=== PATIENT | male | born 1975 ===

== ENCOUNTER 2018-10-20 12:52 | Emergency (ER) | payer OTHER ==
[2018-10-20 13:05] VITALS: RESP 18; O2SAT 97
--- NOTE | 2018-10-20 13:30 | C.PDOC ---
History Of Present Illness 42-year-old male presents with complaints of trauma to his face. 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 He states that the bottom drillbit dislodged and hit him in the face (medially to left eye and bridge of nose;below eyebrow). He denies proper eyewear. Patient denies loss of consciousness or any other injuries. Patient states that his vision is well, denies weakness, dizziness, nausea and vomiting. Chief Complaint (Nursing): Abnormal Skin Integrity History Per: Patient History/Exam Limitations: no limitations Onset/Duration Of Symptoms: Hrs Current Symptoms Are (Timing): Still Present Location Of Injury: Left: Face (nose, eye) Quality Of Symptoms: Other (laceration, active bleeding) Past Medical History Reviewed: Historical Data, Nursing Documentation, Vital Signs Vital Signs: Last Vital Signs Temp 97.4 F L 10/20/18 12:59 Pulse 78 10/20/18 12:59 Resp 18 10/20/18 12:59 BP 125/75 10/20/18 12:59 Pulse Ox 97 10/20/18 12:59 Primary Care Provider: FAMILY PROVIDER,NO - Medical History PMH: No Chronic Diseases Surgical History: No Surg Hx Family History: States: No Known Family Hx - Social History Hx Tobacco Use: No Hx Alcohol Use: Yes Hx Substance Use: No - Immunization History Hx Tetanus Toxoid Vaccination: No Hx Influenza Vaccination: No Hx Pneumococcal Vaccination: No Review Of Systems Constitutional: Negative for: Fever, Chills, Weakness Eyes: Positive for: Redness. Negative for: Vision Change ENT: Negative for: Nose Discharge Cardiovascular: Negative for: Chest Pain Respiratory: Negative for: Cough, Shortness of Breath Gastrointestinal: Negative for: Nausea, Vomiting, Abdominal Pain, Diarrhea Musculoskeletal: Negative for: Neck Pain Skin: Positive for: Other (laceration). Negative for: Rash Neurological: Negative for: Weakness, Dizziness Physical Exam - Physical Exam Appears: Non-toxic Skin: Warm, Dry Head: Atraumatic, Normacephalic, Tenderness, Swelling (hematoma supraorbitally ), Laceration (irregularly shaped/stellate laceration below the left eyebrow and medial bridge of the nose; active bleeding- possible arterial bleed; sutured ) Eye(s): bilateral: Normal Inspection, PERRL, EOMI, Other (fluorescine uptake to 9-12 o'clock region representing corneal abrasion. Vision: 20/30 on right, 20/20 on left.) Ear(s): Bilateral: Normal Nose: No Normal, Discharge (active bleeding) Tongue: Normal Appearing Lips: Normal Appearing Throat: No Erythema, No Exudate Neck: Normal ROM, Supple Chest: Symmetrical Cardiovascular: Rhythm Regular Respiratory: Normal Breath Sounds, No Wheezing Gastrointestinal/Abdominal: Soft, No Tenderness Extremity: Bilateral: Atraumatic Neurological/Psych: Oriented x3, Normal Speech, Normal Cognition, Normal Motor, Normal Sensation Gait: Steady ED Course And Treatment - Laboratory Results Result Diagrams: 10/20/18 16:58 10/20/18 16:58 O2 Sat by Pulse Oximetry: 97 - CT Scan/US CT Orbits Other Rad Studies (CT/US): Read By Radiologist, Radiology Report Reviewed CT/US Interpretation: Accession No. : [id number]. Patient Name / ID : Piero GRAY / [id number]. Exam Date : 10/20/2018 14:11:43 ( Approved ). Study Comment : Sex / Age : M / 42Y. Creator : Francis Simmons MD. Dictator : Francis Simmons MD. Architect In Training : Charging Crane Operator : Francis Simmons MD. Approver2 : Report Date : 10/20/2018 15:04:17. My Comment : . Date of service: 10/20/2018. PROCEDURE: CT MAXILLOFACIAL BONES WITHOUT CONTRAST. HISTORY: Trauma. COMPARISON: None available. TECHNIQUE: Contiguous axial CT images of the maxillofacial bones were obtained. Coronal and sagittal reformats were generated. Radiation dose: Total exam DLP = 792.42 mGy-cm. This CT exam was performed using one or more of the following dose reduction techniques: Automated exposure control, adjustment of the mA and/or kV according to patient size, and/or use of iterative reconstruction technique. FINDINGS: NASAL BONES: There appears to be localized absence of the anterior superior margin of the left nasal bones with significant overlying laceration- disruption of soft tissues that extends laterally over the periorbital soft tissues as well as medially over the mid and right nasal bones and superiorly over the bridge of the nose and glabella region.. Suspected apparent missing small fragment of nasal bones presumed to be posttraumatic related to this avulsion type injury involving.. Swelling-edema extends inferolaterally over the left pre maxillary soft tissues and superiorly into the mid and left supraorbital soft tissues as well. There is also mild lateral periorbital soft tissue swelling. Note that gauze/bandage is overlie the injury site. Clinical correlation with history and physical exam is recommended. ORBITS: The globe itself is intact and lenses appropriately located. There are no retrobulbar hemorrhages or collections. The optic nerves and extraocular musculature appear unremarkable. Visualized paranasal sinuses well-developed and currently well- aerated. PARANASAL SINUSES/ MASTOIDS: Frontal sinuses are hypoplastic-underpneumatized. The remaining visualized paranasal sinuses are relatively well aerated. There is mild mucosal thickening left maxillary antrum and less of the right maxillary antrum. There is also opacification of multiple ethmoid air cells extending superiorly into the inferior margin of the hypoplastic frontal sinuses. MAXILLA: Unremarkable. MANDIBLE/ TEMPOROMANDIBULAR JOINTS: Mandible appears intact. SKULL BASE: Unremarkable. TEMPORAL BONES: Middle ears and mastoid grossly unremarkable. OTHER FINDINGS: None. IMPRESSION: There appears to be localized absence of the anterior superior margin of the left nasal bones with significant overlying laceration- disruption of soft tissues that extends laterally over the periorbital soft tissues as well as medially over the mid and right nasal bones and superiorly over the bridge of the nose and glabella region.. Suspected apparent missing small fragment of nasal bones presumed to be posttraumatic related to this avulsion type injury involving.. Swelling-edema extends inferolaterally over the left pre maxillary soft tissues and superiorly into the mid and left supraorbital soft tissues as well. There is also mild lateral periorbital soft tissue swelling. Note that gauze/bandage is overlie the injury site. Clinical correlation with history and physical exam is recommended. Laceration - Laceration Repair left medial orbit Wound Length (In cm): 3 Description Of Wound: Irregular, Stellate Wound Cleansed With: Betadine, Sterile Saline Anesthesia: Lidocaine 1% Wound Examination: Irrigated With Saline, No FB With Wound Exploration Wound Closure: Suture (7) Suture Technique And Material Used: Interrupted, Nylon (5-0) Wound Complexity: Complex Medical Decision Making Medical Decision Making: Plan:Fluorescine and Tetracaine ordered- revealing corneal abrasion;Tobramycin administered CT Orbits ordered and reviewed-There appears to be localized absence of the anterior superior margin of the left nasal bones with significant overlying laceration-disruption of soft tissues that extends laterally over the periorbital soft tissues as well as medially over the mid and right nasal bones and superiorly over the bridge of the nose and glabella region.. Suspected apparent missing small fragment of nasal bones presumed to be posttraumatic related to this avulsion type injury involving.. Swelling-edema extends inferolaterally over the left pre maxillary soft tissues and superiorly into the mid and left supraorbital soft tissues as well. There is also mild lateral periorbital soft tissue swelling. Note that gauze/bandage is overlie the injury site. Clinical correlation with history and physical exam is recommended. 16:[address] Lobo regarding the patient, who recommended outpatient follow up if bleeding can be controlled; otherwise [place] [facility] [place] LAC repaired by Dr. Lund and I with Lidocaine 1% Bleeding unable to be controlled; continued manual pressure of site 16:40- Spoke to Dr. Morel (plastic surgery) who advised that patient be taken to OR if bleeding could not be controlled; otherwise outpatient follow up Surgery resident contacted under Dr. Morel- evaluated patient due to our inab ility to control bleeding as well as plastics consult; Bleeding controlled bacitracin applied to LAC; surgiform placed; head wrapped with compressible dressing Tetanus administered Patient is stable for discharge Disposition Counseled Patient/Family Regarding: Studies Performed, Diagnosis, Need For Followup, Rx Given - Disposition Referrals: Yumi Morel MD [Staff Provider] - Sergei Lobo MD [Staff Provider] - Noah Hernandez MD [Staff Provider] - Disposition: HOME/ ROUTINE Disposition Time: 16:56 Condition: STABLE Additional Instructions: Place towel on pillow for possible bleeding Ice packs to face to reduce swelling Afrin nasal spray to help with breathing No nose blowing Continue Antibiotics and pain meds as prescribed Eye drops four times a day Follow up with plastic surgeon - Dr. Landeros tomorrow Follow up with Ophthalmology -Dr. Hernandez tomorrow Follow up with Dr. Lobo tomorrow- call today to make an appt for tomorrow Follow up with PMD or clinic to establish primary care You have been given copy of the imaging to take with you to the above specialists Return to the ED if BLEEDING WORSENS OR IN 7-10 DAYS FOR SUTURE REMOVAL Coloque la toalla en la almohada para un posible sangrado Paquetes de hielo a bonita para reducir la hinchazn. Afrin spray nasal para ayudar con la respiracin. Sin soplar la nariz Continuar con los antibiticos y medicamentos para el dolor segn lo prescrito. Gotas para los ojos cuatro veces al da. Seguimiento con el cirujano plstico - Dr. Landeros maana Seguimiento con Oftalmologa -Dr. Hernandez maana Jose un seguimiento con el Dr. Lobo maana; llame hoy para hacer rebecca may para maana Seguimiento con PMD para establecer atencin primaria. Se le crook entregado rebecca copia de la imagen para llevarla con los especialistas mencionados anteriormente. Regrese a la ED si la hemorragia empeora o en 7-10 de la rosa para la eliminacin de la belleza. . Prescriptions: Ibuprofen [Motrin] 600 mg PO Q6 PRN #30 tab PRN Reason: Pain, Moderate (4-7) Oxymetazoline 0.05% [Oxymetazoline HCl 30 Ml] 1 ml NS BID #1 bottle Sulfamethoxazole/Trimethoprim [Bactrim DS 800 mg-160 mg] 1 tab PO BID #13 tab Tobramycin 0.3% [Tobrex 0.3% Ophth Soln] 1 drop OS QID 10 Days #1 bottle Instructions: Corneal Abrasion, Wound Care (DC), Laceration Repair With Stitches (DC), Nose Fracture (DC), Head Injury Observation (DC) Forms: [place] (Korean), Work Excuse Print Language: CHINESE - Clinical Impression Clinical Impression: Nasal fracture, Facial trauma, Hematoma, Laceration, Corneal abrasion, left - PA / AIRCRAFT [employer]IVETER / Resident Statement MD/DO has reviewed & agrees with the documentation as recorded. - Scribe Statement The provider has reviewed the documentation as recorded by the Scribe (Jose Alfredo) All medical record entries made by the Scribe were at my direction and personally dictated by me. I have reviewed the chart and agree that the record accurately reflects my personal performance of the history, physical exam, medical decision making, and the department course for this patient. I have also personally directed, reviewed, and agree with the discharge instructions and disposition.
[2018-10-20] MEDS ORDERED: Fluorescein 1 mg Ophthalmic Strip OU ONE (13:31)
[2018-10-20] MEDS ORDERED: Tetracaine 0.5% Ophth 2 ML BOTTLE OU ONE (13:31)
[2018-10-20] MEDS ORDERED: Tdap Vaccine 0.5 ml Vial (10-64 yrs) IM ONE ×2 (13:34→13:52)
[2018-10-20] MEDS ORDERED: Fluorescein 1 mg Ophthalmic Strip ONE (13:52)
[2018-10-20] MEDS ORDERED: Tetracaine 0.5% Ophth (OR ONLY) ONE (13:52)
[2018-10-20] MEDS ORDERED: Lidocaine 1% Inj (20ml) INFIL ONE (14:48)
[2018-10-20] MEDS ORDERED: Bacitracin 500 Units/gm Oint Foilpak UD TOP ONE (14:48)
[2018-10-20] MEDS ORDERED: Lidocaine Hydrochloride 10 ML INJ ONE (14:53)
[2018-10-20] MEDS ORDERED: Bacitracin 500 Units/gm Oint Foilpak UD ONE (14:53)
[2018-10-20] MEDS ORDERED: Tobramycin 0.3% OPHT SOLN OS STA (15:04)
--- NOTE | 2018-10-20 15:07 | CT ---
Date of service: 10/20/2018 PROCEDURE: CT MAXILLOFACIAL BONES WITHOUT CONTRAST HISTORY: Trauma. COMPARISON: None available. TECHNIQUE: Contiguous axial CT images of the maxillofacial bones were obtained. Coronal and sagittal reformats were generated. Radiation dose: Total exam DLP = 792.42 mGy-cm. This CT exam was performed using one or more of the following dose reduction techniques: Automated exposure control, adjustment of the mA and/or kV according to patient size, and/or use of iterative reconstruction technique. FINDINGS: NASAL BONES: There appears to be localized absence of the anterior superior margin of the left nasal bones with significant overlying laceration-disruption of soft tissues that extends laterally over the periorbital soft tissues as well as medially over the mid and right nasal bones and superiorly over the bridge of the nose and glabella region.. Suspected apparent missing small fragment of nasal bones presumed to be posttraumatic related to this avulsion type injury involving.. Swelling-edema extends inferolaterally over the left pre maxillary soft tissues and superiorly into the mid and left supraorbital soft tissues as well. There is also mild lateral periorbital soft tissue swelling. Note that gauze/bandage is overlie the injury site. Clinical correlation with history and physical exam is recommended. ORBITS: The globe itself is intact and lenses appropriately located. There are no retrobulbar hemorrhages or collections. The optic nerves and extraocular musculature appear unremarkable. Visualized paranasal sinuses well-developed and currently well-aerated. PARANASAL SINUSES/ MASTOIDS: Frontal sinuses are hypoplastic-underpneumatized. The remaining visualized paranasal sinuses are relatively well aerated. There is mild mucosal thickening left maxillary antrum and less of the right maxillary antrum. There is also opacification of multiple ethmoid air cells extending superiorly into the inferior margin of the hypoplastic frontal sinuses. MAXILLA: Unremarkable. MANDIBLE/ TEMPOROMANDIBULAR JOINTS: Mandible appears intact. SKULL BASE: Unremarkable. TEMPORAL BONES: Middle ears and mastoid grossly unremarkable. OTHER FINDINGS: None. IMPRESSION: There appears to be localized absence of the anterior superior margin of the left nasal bones with significant overlying laceration-disruption of soft tissues that extends laterally over the periorbital soft tissues as well as medially over the mid and right nasal bones and superiorly over the bridge of the nose and glabella region.. Suspected apparent missing small fragment of nasal bones presumed to be posttraumatic related to this avulsion type injury involving.. Swelling-edema extends inferolaterally over the left pre maxillary soft tissues and superiorly into the mid and left supraorbital soft tissues as well. There is also mild lateral periorbital soft tissue swelling. Note that gauze/bandage is overlie the injury site. Clinical correlation with history and physical exam is recommended.
[2018-10-20] MEDS ORDERED: Tmp-Smz 800 mg-160 mg DS Tab PO STA (16:55)
[2018-10-20] MEDS ORDERED: Oxymetazoline 0.05% Nasal Spray (30 ml) NS STA (16:56)
[2018-10-20] MEDS ORDERED: Tmp-Smz 800 mg-160 mg DS Tab ONE (17:01)
[2018-10-20 17:04] LABS: BASO % 0.4 % (0.0-2.0); EOS # 0.1 K/uL (0.0-0.7); EOS % 0.8 % (0.0-4.0); HEMOGLOBIN 13.1 g/dL (12.0-18.0); LYMPH # 1.6 K/uL (1.0-4.3); MEAN CORPUSCULAR HEMOGLOBIN 28.3 pg (27.0-31.0); MEAN CORPUSCULAR HGB CONC 33.7 g/dL (33.0-37.0); MEAN PLATELET VOLUME 8.6 fL (7.2-11.7); MONO # 0.7 K/uL (0.0-0.8); MONO % 5.9 % (0.0-10.0); NEUT # 9.2 K/uL (1.8-7.0); NEUT % 78.9 % (50.0-75.0); NRBC % 0.1 % (0.0-2.0); RBC 4.62 Mil/uL (4.40-5.90); RED CELL DISTRIBUTION WIDTH 13.6 % (11.5-14.5); WHITE BLOOD COUNT 11.7 K/uL (4.8-10.8)
--- NOTE | 2018-10-20 17:08 | CP.PCM.CON ---
History of Present Illness - History of Present Illness History of Present Illness: Plastic Surgery Consult for Dr. Morel Reason for consult: facial laceration uncontrollable bleeding 42 M with no significant PMH who presents to [facility] with complaint of trauma to his left medial eye and nose. Patient was seen and evaluated in the ED. Patient reports that he was using a jackhammer while working when the bottom drill bit dislodged and hit him in the face. Patient denies loss of consciousness or any other injuries. Patient noticed that he was cute and bleeding. They applied some pressure but it did not stop so his brother brought him to the ED. Admits to mailase and dizziness/lightheadedness. Patient denies fever/chills, cp, SOB, palpitations, abd pain, n/v/d, constipation, urinary symptoms. PMH: Denies PSH: Denies ALL: NKDA Review of Systems - Review of Systems All systems: reviewed and no additional remarkable complaints except (as per HP I) Past Patient History - Past Social History Smoking Status: Current Some Days Smoker - PSYCHIATRIC Hx Substance Use: No - SURGICAL HISTORY Hx Surgeries: No - ANESTHESIA Hx Anesthesia: No Meds Home Medications: Home Medication List Medication Instructions Recorded Confirmed Type Ibuprofen [Motrin] 600 mg PO Q6 PRN #30 tab 10/20/18 Rx Sulfamethoxazole/Trimethoprim 1 tab PO BID #13 tab 10/20/18 Rx [Bactrim DS 800 mg-160 mg] Allergies/Adverse Reactions: Allergies Allergy/AdvReac Type Severity Reaction Status Date / Time No Known Allergies Allergy Verified 10/20/18 13:05 Physical Exam - Constitutional Appears: No Acute Distress - Head Exam Head Exam: NORMOCEPHALIC Additional comments: curvilinear laceration around medial orbit measuring 5 cm - Eye Exam Eye Exam: EOMI Pupil Exam: PERRL - ENT Exam ENT Exam: Mucous Membranes Moist - Respiratory Exam Respiratory Exam: NORMAL BREATHING PATTERN - Cardiovascular Exam Cardiovascular Exam: REGULAR RHYTHM - GI/Abdominal Exam GI & Abdominal Exam: Soft. absent: Tenderness - Extremities Exam Extremities exam: Positive for: normal capillary refill - Neurological Exam Neurological exam: Alert, Normal Gait, Oriented x3 - Psychiatric Exam Psychiatric exam: Normal Affect, Normal Mood - Skin Skin Exam: Dry, Warm Results - Vital Signs Recent Vital Signs: Last Vital Signs Temp 97.4 F L 10/20/18 12:59 Pulse 78 10/20/18 12:59 Resp 18 10/20/18 12:59 BP 125/75 10/20/18 12:59 Pulse Ox 97 10/20/18 17:06 - Labs Result Diagrams: 10/20/18 16:58 10/20/18 16:58 Labs: Laboratory Results - last 24 hr 10/20/18 16:58 WBC 11.7 H RBC 4.62 Hgb 13.1 Hct 38.8 MCV 84.0 MCH 28.3 MCHC 33.7 RDW 13.6 Plt Count 227 MPV 8.6 Neut % (Auto) 78.9 H Lymph % (Auto) 14.0 L [place] % (Auto) 5.9 Eos % (Auto) 0.8 Baso % (Auto) 0.4 Neut # (Auto) 9.2 H Lymph # (Auto) 1.6 [place] # (Auto) 0.7 Eos # (Auto) 0.1 Baso # (Auto) 0.0 Assessment & Plan - Assessment and Plan (Free Text) Assessment: 42 M with nasal fracture and uncontrolled hemorrhage Plan: -Bleeding controlled -Ice packs for swelling -nasal sparay for congestion -Sleep with towel on pillow in case of bleeding -May use bacitracin TID on laceration for first 2-3 days -F/u with Dr. Morel for laceration within 1 week -Return to ED if bleeding returns and does not stop -Discussed with Dr. Adriel Bolaños PGY2 - Date & Time Date: 10/20/18 Time: 17:08
[2018-10-20] MEDS ORDERED: Sodium Chloride 0.9% 1,000 ML IV ONE (17:16)
[2018-10-20 17:20] LABS: PARTIAL THROMBOPLASTIN TIME 31.3 SECONDS (21-34); PROTHROMBIN TIME 10.6 SECONDS (9.7-12.2)
[2018-10-20 17:24] LABS: ALB/GLOB RATIO 1.5 (1.0-2.1); ALBUMIN 4.4 g/dL (3.5-5.0); ALT/SGPT 51 U/L (21-72); AST/SGOT 32 U/L (17-59); BLOOD UREA NITROGEN 11 mg/dL (9-20); GFR NON-AFRICAN AMERICAN > 60
[2018-10-20] MEDS ORDERED: Oxymetazoline 0.05% Nasal Spray (30 ml) NS ONE (17:38)
[2018-10-20 17:42] VITALS: BP 133/81; PULSE 86; TEMP 98.9
[2018-10-20] MEDS ORDERED: Absorbable Gelatin Sponge Size 12-7 TOP STA (17:42)
[2018-10-20] MEDS ORDERED: Absorbable Gelatin Sponge Size 12-7 ONE (17:49)
== END 2018-10-20 18:18 | disposition home or self-care (01) ==
LOC: C.ER 12:52
DX: S05.42XA Penetrating wound of orbit with or without foreign body, left eye, initial encounter (principal); S02.2XXA Fracture of nasal bones, initial encounter for closed fracture; S05.12XA Contusion of eyeball and orbital tissues, left eye, initial encounter; S05.02XA Injury of conjunctiva and corneal abrasion without foreign body, left eye, initial encounter; W22.8XXA Striking against or struck by other objects, initial encounter; Y92.89 Other specified places as the place of occurrence of the external cause; Y99.0 Civilian activity done for income or pay
CPT/HCPCS: 12013; 70480; 80053; 85025; 85610; 85730; 86850; 86900; 90471; 90715; 96360; 99285; J7030